=== PATIENT | female | born 2000 | race Two or more races ===

== ENCOUNTER 2025-05-05 15:59 | Emergency (ER) | payer OTHER ==
[~2025-05-05] VITALS: Ht 160 cm; Wt 72.6 kg
[2025-05-05] MEDS ORDERED: ONDANSETRON HCL 2 MG/ML VIAL IV ONE (17:45)
[2025-05-05] MEDS ORDERED: KETOROLAC TROMETHAMINE 30 MG VIAL IU ONE (18:00)
[2025-05-05] MEDS ORDERED: 0.9 % SODIUM CHLORIDE 1,000 ML IV ONE (18:00)
[2025-05-05] MEDS ORDERED: FAMOTIDINE/PF 20 MG/2 ML VIAL IV ONE (18:00)
[2025-05-05 20:08] LABS: BASO % 0.2 % (0.1-1.2); EOS # 0.22 (0.04-0.54); EOS % 1.8 % (0.7-7.0); LYMPH # 2.59 (1.18-3.74); LYMPH % 21.1 % (19.3-53.1); MEAN PLATELET VOLUME 11.80 fl (9.4-12.4); MONO # 1.07 (0.24-0.82); MONO % 8.7 % (4.7-12.5); NEUT # 8.32 (1.56-6.13); NEUT % 68.0 % (34.0-71.1); RED CELL DISTRIBUTION WIDTH 13.7 % (11.6-14.4)
[2025-05-05 20:32] LABS: ALT/SGPT 31.0 U/L (12-78); AST/SGOT 16.0 U/L (15-37); BILIRUBIN TOTAL 0.68 mg/dL (0.3-1.2); BUN CREA RATIO 16.0 (7.0-25.0); CREATININE SERUM 0.7 mg/dL (0.55-1.02); GFR 101.95; GLOBULINA 4.0 G/DL (2.4-3.5); GLUCOSE FASTING 86.0 mg/dL (65-100); OSMOLALITY SERUM 282.0 MOSM/KG (275-295)
[2025-05-05 21:28] LABS: URINE APPEARANCE Clear; URINE BILIRRUBIN Negative (NEGATIVE); URINE BLOOD Negative; URINE COLOR Yellow; URINE GLUCOSE Negative (NEGATIVE); URINE KETONE Negative (NEGATIVE); URINE LEUKOCYTE Negative; URINE NITRATE Negative; URINE PROTEIN Trace (NEGATIVE); URINE UROBILINOGEN 1.0 E.U./dl
[2025-05-05 21:32] LABS: URINE BACTERIA 958.6 uL (0.0-1933); URINE EPITHELIAL CELLS 27.1 uL (0.0-38.8); URINE RBC 14.5 uL (0.0-20.8); URINE WBC 7.6 uL (0.0-23.2)
[2025-05-05 21:55] LABS: URINE CAST 0.14 uL (0.0-1.40)
[2025-05-05] MEDS ORDERED: PEPCID AC20 MG PO (22:25)
[2025-05-05] MEDS ORDERED: ZOFRAN8 MG SL (22:25)
[2025-05-05] MEDS ORDERED: DICY20TA PO (22:25)
== END 2025-05-05 22:37 | disposition home or self-care (01) ==
LOC: ER 15:59
PROVIDERS: General Practice
DX: K52.89 Other specified noninfective gastroenteritis and colitis (principal)